=== PATIENT | male | born 1990 | race Caucasian/White ===

== ENCOUNTER 2017-12-05 20:58 | Emergency (ER) | payer OTHER ==
[~2017-12-05] VITALS: Ht 188 cm; Wt 95.3 kg
[2017-12-05] MEDS ORDERED: XANAX1 MG PO (21:11)
[2017-12-05 21:29] LABS: ABSOLUTE EOSINOPHILS 0.1 thou/uL (0.0-0.7); ABSOLUTE LYMPHOCYTES 2.6 thou/uL (0.8-5.3); ABSOLUTE MONOCYTES 0.9 thou/uL (0.0-1.2); ABSOLUTE NEUTROPHILS 6.8 thou/uL (1.6-8.1); BASOPHILS 0.4 %; EOSINOPHILS 0.7 %; HEMATOCRIT 44.2 % (42.0-52.0); HEMOGLOBIN 15.1 gm/dL (14.0-18.0); MCH 32.9 pg (26.0-34.0); MCHC 34.1 g/dL (28.0-37.0); MCV 96.5 fL (80.0-100.0); MONOCYTES 8.9 %; MPV 8.6 fl. (7.2-11.1); NUCLEATED RBCS 0 /100WBC; PLATELET COUNT* 194 thou/uL (150-400); RBC 4.58 mil/uL (4.50-6.00); RDW-CV 12.2 % (10.5-14.5); WBC 10.4 thou/uL (4.0-11.0)
[2017-12-05 21:38] LABS: ANION GAP 12 mmol/L (7-16); BUN 17 mg/dL (7-18); CALCIUM 8.9 mg/dL (8.5-10.1); CHLORIDE 104 mmol/L (98-107); CO2 26 mmol/L (21-32); CREATININE 1.2 mg/dL (0.6-1.3); GLUCOSE 123 mg/dL (70-99); POTASSIUM 3.9 mmol/L (3.5-5.1); SODIUM 142 mmol/L (136-145)
[2017-12-05 21:45] LABS: ALBUMIN 4.1 g/dL (3.4-5.0); ALKALINE PHOSPHATASE 77 U/L (46-116); SGOT 23 U/L (15-37); SGPT 25 U/L (30-65); TOTAL BILIRUBIN 0.7 mg/dL (<0.1-1.0); TOTAL PROTEIN 7.2 g/dL (6.4-8.2); TROPONIN-I LEVEL <0.06 ng/mL (<0.06)
[2017-12-05 22:10] LABS: AMP/METHAMP Negative (Negative); BARBITURATES Negative (Negative); BENZODIAZEPINES Negative (Negative); COCAINE Negative (Negative); METHADONE Negative (Negative); OPIATES Negative (Negative); PCP Negative (Negative); THC POSITIVE (Negative)
[2017-12-05] MEDS ORDERED: ZANTAC 150MG T150 MG PO (22:17)
[2017-12-05 22:36] VITALS: BP 136/59
--- NOTE | 2017-12-06 10:09 | EKG ---
[place] [address] ELECTROCARDIOGRAM REPORT Name: BERNARDO HINOJOSA [id number] Admission: 12/05/17 Attend Phys: Discharge: 12/05/17 Date of : [birth year] Report #: [id number] THIS REPORT FOR: //name// [facility] ED Test Date: 2017-12-05 Test Time: 21:06:06 Pat Name: BERNARDO HINOJOSA Department: Room: Gender: M Cost Consultant: APRYL De La Rosa : 1990 Requested By: Priya Rodriguez Order Number: [id number] MD: Gianni Colin Measurements Intervals [place] Rate: 93 P: 65 [place]: 171 QRS: 60 QRSD: 90 T: 32 QT: 336 QTc: 418 Interpretive Statements Sinus rhythm incomplete RBBB Probable left atrial enlargement septal infarct, age indeterminate No previous ECG available for comparison Electronically Signed On 12-06-2017 10:09:02 CDT by Gianni Colin [email or web address] <ELECTRONICALLY SIGNED> By: Gianni Colin MD, [facility] 12/06/17 1009 05 Gianni Colin MD, FACC /EPI
== END 2017-12-05 22:37 | disposition home or self-care (01) ==
LOC: M.ERS 20:58
PROVIDERS: Nurse Practitioner Family
DX: R07.89 Other chest pain (principal)

== ENCOUNTER 2018-01-08 08:34 | Emergency (ER) | payer OTHER ==
[~2018-01-08] VITALS: Ht 188 cm; Wt 97.5 kg
[~2018-01-08 08:34] MED LIST: XANAX1 MG PO; ZANTAC 150MG T150 MG PO
[2018-01-08] MEDS ORDERED: ADDERALL 10 MG10 MG (08:41)
[2018-01-08 08:49] LABS: ABSOLUTE LYMPHOCYTES 1.5 thou/uL (0.8-5.3); ABSOLUTE NEUTROPHILS 9.2 thou/uL (1.6-8.1); BASOPHILS 0.3 %; EOSINOPHILS 0.4 %; HEMATOCRIT 46.7 % (42.0-52.0); HEMOGLOBIN 15.9 gm/dL (14.0-18.0); LYMPHOCYTES 12.6 %; MCH 32.7 pg (26.0-34.0); MONOCYTES 8.9 %; MPV 8.1 fl. (7.2-11.1); NUCLEATED RBCS 0 /100WBC; PLATELET COUNT* 225 thou/uL (150-400); POLYS 77.8 %; RBC 4.86 mil/uL (4.50-6.00); RDW-CV 12.3 % (10.5-14.5); WBC 11.8 thou/uL (4.0-11.0)
[2018-01-08 08:58] LABS: APTT 28.9 Seconds (25.0-31.3); INR 1.2; PROTIME 11.5 Seconds (9.20-11.50)
[2018-01-08 09:00] LABS: CALCIUM 8.8 mg/dL (8.5-10.1); CREATININE 1.5 mg/dL (0.6-1.3); POTASSIUM 3.2 mmol/L (3.5-5.1)
[2018-01-08 09:06] LABS: ACETAMINOPHEN < 2 ug/mL (10-30); ALCOHOL < 10 mg/dL (<10); SALICYLATE < 2.8 mg/dL (2.8-20.0)
[2018-01-08 09:14] LABS: ALBUMIN 4.4 g/dL (3.4-5.0); CK-MB MASS 5.8 ng/mL (<0.5-3.6); TOTAL BILIRUBIN 2.6 mg/dL (<0.1-1.0); TOTAL PROTEIN 7.7 g/dL (6.4-8.2)
[2018-01-08 10:42] VITALS: BP 143/97
--- NOTE | 2018-01-09 13:19 | EKG ---
[place] [address] ELECTROCARDIOGRAM REPORT Name: BERNARDO HINOJOSA Room: [facility]#: [id number] Admission: 01/08/18 Attend Phys: Discharge: 01/08/18 Date of : [birth year] Report #: [id number] THIS REPORT FOR: //name// [facility] ED Test Date: 2018-01-08 Test Time: 08:54:50 Pat Name: BERNARDO HINOJOSA Department: Room: Gender: M Pre Coder: : 1990 Requested By: Catrachito Srivastava Order Number: [id number] MD: Cole Pham Measurements Intervals [place] Rate: 122 P: 83 CT: 153 QRS: 162 QRSD: 80 T: 57 QT: 314 QTc: 448 Interpretive Statements Sinus tachycardia Consider right atrial enlargement S1,S2,S3 pattern Baseline wander in lead(s) I,II,aVR,aVF Compared to ECG 12/05/2017 21:06:06 Sinus rhythm no longer present Right bundle-branch block no longer present Myocardial infarct finding no longer present Electronically Signed On 01-09-2018 13:18:51 CDT by Cole Pham [email or web address] <ELECTRONICALLY SIGNED> By: Cole Pahm MD, FACC 01/09/18 1318 [id number] Cole Pham MD, FAC /EPI
== END 2018-01-08 10:42 | disposition home or self-care (01) ==
LOC: M.ERS 08:34
PROVIDERS: Family Medicine
DX: T40.1X4A Poisoning by heroin, undetermined, initial encounter (principal); F90.9 Attention-deficit hyperactivity disorder, unspecified type; F12.10 Cannabis abuse, uncomplicated; Y92.89 Other specified places as the place of occurrence of the external cause

== ENCOUNTER 2020-03-10 11:30 | Emergency (ER) | payer OTHER ==
[~2020-03-10] VITALS: Ht 190.5 cm; Wt 99.8 kg
[~2020-03-10 11:30] MED LIST changes: +ADDERALL 10 MG10 MG
[2020-03-10] MEDS ORDERED: TYLENOL WITH CO1 TA1 PO (12:33)
[2020-03-10 12:44] VITALS: BP 127/50
== END 2020-03-10 12:46 | disposition home or self-care (01) ==
LOC: M.ERS 11:30
DX: S90.31XA Contusion of right foot, initial encounter (principal); M79.642 Pain in left hand; F90.9 Attention-deficit hyperactivity disorder, unspecified type; W22.8XXA Striking against or struck by other objects, initial encounter; Y93.89 Activity, other specified; Y92.89 Other specified places as the place of occurrence of the external cause; Y99.0 Civilian activity done for income or pay

== ENCOUNTER 2020-06-05 18:07 | Emergency (ER) | payer OTHER ==
[~2020-06-05] VITALS: Ht 190.5 cm; Wt 99.8 kg
[~2020-06-05 18:07] MED LIST changes: +TYLENOL WITH CO1 TA1 PO
[2020-06-05] MEDS ORDERED: AMOXICILLIN 50500 MG PO (19:36)
[2020-06-05] MEDS ORDERED: NORCO 5-325 TA1 EAC2 PO (19:36)
[2020-06-05 19:56] VITALS: BP 107/64
== END 2020-06-05 19:56 | disposition home or self-care (01) ==
LOC: M.ERS 18:07
DX: K04.7 Periapical abscess without sinus (principal)